=== PATIENT | female | born 1935 | race Caucasian/White ===

== ENCOUNTER 2016-04-17 11:47 | Inpatient (IN) | payer MEDICARE ==
[2016-04-17] VITALS (19 sets, daily range): BP systolic 131–166; RESP 18–20; TEMP 97.7–98.1; Ht 160 cm; Wt 79.4 kg
[~2016-04-17] VITALS: Ht 160 cm; Wt 79.4 kg
[2016-04-17] MEDS ORDERED: NITROGLYCERIN 2% OINT 1 INCH PKT TOPICAL ONE (12:27)
[2016-04-17] MEDS ORDERED: SODIUM CHLORIDE 0.9% 500 ML IV ONE (12:28)
[2016-04-17] MEDS ORDERED: ENOXAPARIN 80 MG/0.8 ML SYR SUBQ ONE (14:47)
[2016-04-17] MEDS ORDERED: DOCUSATE SOD 100 MG CAP PO PRN (16:10)
[2016-04-17] MEDS ORDERED: ASPIRIN 81 MG CHEW TAB PO ONE (16:10)
[2016-04-17] MEDS ORDERED: MORPHINE 2 MG/ML SYR IV PRN (16:10)
[2016-04-17] MEDS ORDERED: ONDANSETRON 4 MG VIAL IV PRN (16:10)
[2016-04-17] MEDS ORDERED: TEMAZEPAM 7.5 MG CAP PO PRN (16:10)
[2016-04-17] MEDS ORDERED: NITROGLYCERIN SL 0.4 MG TAB SL PRN (16:10)
[2016-04-17] MEDS ORDERED: ACETAMINOPHEN 325 MG TAB PO PRN (16:10)
[2016-04-17] MEDS ORDERED: SALINE FLUSH 10 ML FLUSH PRN (16:10)
[2016-04-17] MEDS ORDERED: SODIUM CHLORIDE 0.9% FLUSH BAG 500 ML IV PRN (16:10)
[2016-04-17] MEDS ORDERED: LORAZEPAM 0.5 MG TAB PO PRN (16:10)
[2016-04-17] MEDS ORDERED: NITROGLYCERIN 50 MG/250 ML IV PRN (16:10)
[2016-04-17] MEDS: TRAMADOL 50 MG TAB PO PRN (16:49)
[2016-04-17] MEDS ORDERED: CARDIZEM 1 MG/ML DRIP 125 ML IV SCH (17:55)
[2016-04-17] MEDS: MAGNESIUM SULF 1 GM/100 ML 100 ML IV SCH ×2 (18:29→20:12)
[2016-04-17] MEDS: SALINE FLUSH 10 ML FLUSH SCH (18:29)
[2016-04-18] VITALS (41 sets, daily range): BP systolic 82–179; RESP 18; TEMP 98–98.6
[2016-04-18] MEDS: TRAMADOL 50 MG TAB PO PRN (04:52)
[2016-04-18] MEDS ORDERED: ENOXAPARIN 80 MG/0.8 ML SYR SUBQ SCH (05:00)
[2016-04-18] MEDS: SALINE FLUSH 10 ML FLUSH SCH ×2 (06:59→20:15)
[2016-04-18] MEDS: ASPIRIN EC 81 MG TAB PO SCH (08:30)
[2016-04-18] MEDS ORDERED: oxyCODONE/APAP 10/325 TABLET PO PRN (11:00)
[2016-04-18] MEDS: METFORMIN 500 MG TAB PO SCH ×2 (11:28→20:15)
[2016-04-18] MEDS: HCTZ PO SCH (11:29)
[2016-04-18] MEDS: BISOPROLOL PO SCH (11:29)
[2016-04-18] MEDS: glyBURIDE 5 MG TAB PO SCH ×2 (11:29→20:14)
[2016-04-18] MEDS: DILTIAZEM CD 120 MG CAP PO SCH (15:41)
[2016-04-18] MEDS ORDERED: Rivaroxaban 15 MG TAB PO SCH (17:00)
[2016-04-18] MEDS ORDERED: GABAPENTIN 300 MG CAP PO SCH (21:00)
[2016-04-18] MEDS ORDERED: Atorvastatin 10 MG TAB PO SCH (21:00)
[2016-04-19 04:04] VITALS: BP_SYST 155; RESP 18; TEMP 98.1
[2016-04-19 07:20] VITALS: BP_SYST 142; RESP 20; TEMP 98.4
[2016-04-19] MEDS: SALINE FLUSH 10 ML FLUSH SCH (09:10)
[2016-04-19] MEDS: HCTZ PO SCH (09:11)
[2016-04-19] MEDS: METFORMIN 500 MG TAB PO SCH (09:11)
[2016-04-19] MEDS: glyBURIDE 5 MG TAB PO SCH (09:11)
[2016-04-19] MEDS: DILTIAZEM CD 120 MG CAP PO SCH (09:11)
[2016-04-19] MEDS: BISOPROLOL PO SCH (09:11)
[2016-04-19] MEDS: ASPIRIN EC 81 MG TAB PO SCH (09:11)
[2016-04-19 11:09] VITALS: BP_SYST 142; RESP 20; TEMP 98.4
[2016-04-19 11:40] VITALS: BP_SYST 117; RESP 20; TEMP 98.5
== END 2016-04-19 12:26 | disposition home or self-care (01) | DRG 310 ==
LOC: ENRESERVTM → ENRESERVDT → ER 11:47 → EMR 14:58 → ENPENDDIS 14:58 → PCU2 16:00
PROVIDERS: ADMIT Specialist; ATTEND Specialist
DX: I48.91 Unspecified atrial fibrillation (principal); E11.9 Type 2 diabetes mellitus without complications; Z95.1 Presence of aortocoronary bypass graft; E78.00 Pure hypercholesterolemia, unspecified; I25.119 Atherosclerotic heart disease of native coronary artery with unspecified angina pectoris; Z87.891 Personal history of nicotine dependence
CPT/HCPCS: 71010; 80053; 80061; 82550; 82553; 82947; 83735; 83880; 84484; 85025; 85610; 85730; 93005; 93306; 94799; 96360; 96372